=== PATIENT | female | born 1945 | race Two or more races ===

== ENCOUNTER 2018-10-24 17:47 | Outpatient (CLI) | payer OTHER | END 2018-10-24 17:52 | disposition home or self-care (01) | LOC: RAD 17:47 | DX: J44.9 Chronic obstructive pulmonary disease, unspecified (principal); I10 Essential (primary) hypertension; I25.10 Atherosclerotic heart disease of native coronary artery without angina pectoris; E78.00 Pure hypercholesterolemia, unspecified; H40.9 Unspecified glaucoma; K21.9 Gastro-esophageal reflux disease without esophagitis; Z95.0 Presence of cardiac pacemaker; Z85.3 Personal history of malignant neoplasm of breast; G50.0 Trigeminal neuralgia; E66.01 Morbid (severe) obesity due to excess calories; Z68.41 Body mass index [BMI] 40.0-44.9, adult ==

== ENCOUNTER 2020-04-05 12:45 | Outpatient (CLI) | payer OTHER | END 2020-04-05 13:30 | disposition home or self-care (01) | LOC: WOUND MED 12:45 | PROVIDERS: ATTEND Specialist | DX: L97.322 Non-pressure chronic ulcer of left ankle with fat layer exposed (principal) | CPT/HCPCS: 11042; G0463; A4554; A4930; A6216; A6219 ==

== ENCOUNTER 2020-04-12 11:25 | Outpatient (CLI) | payer OTHER | END 2020-04-12 12:45 | disposition home or self-care (01) | LOC: WOUND MED 11:25 | PROVIDERS: ATTEND Specialist | DX: L97.322 Non-pressure chronic ulcer of left ankle with fat layer exposed (principal) | CPT/HCPCS: A4554; A4930; A6216; G0463 ==